=== PATIENT | female | born 1990 | race Caucasian/White ===

== ENCOUNTER 2016-11-26 12:31 | Emergency (ER) | payer MEDICAID ==
[2016-11-26 12:36] VITALS: BMI 41.3
[2016-11-26 12:38] VITALS: RESP 18
[2016-11-26] MEDS ORDERED: Sodium Chloride 0.9% 1,000 ML IV STA (13:24)
[2016-11-26] MEDS ORDERED: Sodium Chloride 0.9% 1,000 ML ONE (13:41)
--- NOTE | 2016-11-26 13:49 | C.PDOC ---
History Of Present Illness 26-year-old female, PMHx includes Hypertension and possible PCOS, presents to the emergency department with complaints of B/L lower pelvic pain for the past several months, that is intermittent in nature, sharp and occurs for twenty minutes at a time, every two hours. Patient denies fevers, chills, shortness of breath, nausea/vomiting, diarrhea, constipation, vaginal bleeding, dysuria, or any other associated symptoms. Patient states she went to the ER for same complaint in the past; Patient had a negative urine and lab work, and she was instructed to f/u with OBGYN outpatient. Patient was seen by PMD, who also instructed her to see OBGYN. Patient denies nausea/vomiting, diarrhea, fevers, chills, chest pain, shortness of breath, or any other associated symptoms. No other complaints at this time. Time Seen by Provider: 11/26/16 13:05 Chief Complaint (Nursing): Abdominal Pain History Per: Patient History/Exam Limitations: no limitations Onset/Duration Of Symptoms: Days, Intermittent Episodes Current Symptoms Are (Timing): Still Present Severity: Moderate Past Medical History Reviewed: Historical Data, Nursing Documentation, Vital Signs Vital Signs: Last Vital Signs Temp 98.7 F 11/26/16 12:37 Pulse 94 H 11/26/16 12:37 Resp 18 11/26/16 12:37 BP 138/84 11/26/16 12:37 Pulse Ox 98 11/26/16 13:52 - Medical History PMH: HTN Denies: Sexually Transmitted Disease Surgical History: - [facility] Procedures MONITORING NOS (08/26/14) LOW CERVICAL (11/18/14) Family History: States: No Known Family Hx - Social History Hx Tobacco Use: No Hx Alcohol Use: Yes Hx Substance Use: No - Immunization History Hx Tetanus Toxoid Vaccination: No Hx Influenza Vaccination: Yes (October 2016) Hx Pneumococcal Vaccination: No Review Of Systems Except As Marked, All Systems Reviewed And Found Negative. Constitutional: Negative for: Fever, Chills Gastrointestinal: Negative for: Nausea, Vomiting Genitourinary: Positive for: Pelvic Pain. Negative for: Dysuria, Frequency, Vaginal Discharge, Vaginal Bleeding Musculoskeletal: Negative for: Back Pain Skin: Negative for: Rash Physical Exam - Physical Exam Additional Physical Exam Comments: Constitutional: No acute distress. Head: Normocephalic. Atraumatic. Eyes: PERRL. ENT: Moist mucous membranes. Neck: Supple. Cardiovascular: Regular rate. Radial pulses 2+ bilaterally. Chest: No tenderness. Respiratory: Clear to auscultation bilaterally. GI: Soft. Nontender. Obese Back: No CVA tenderness. Musculoskeletal: No tenderness or swelling of extremities. Skin: No rashes. Neurologic: Alert, no focal deficit. ED Course And Treatment - Laboratory Results Result Diagrams: 11/26/16 13:39 11/26/16 13:39 O2 Sat by Pulse Oximetry: 98 Medical Decision Making Medical Decision Making: Impression 26y/o F, comes in w/ low pelvic pain x several months. Plan: * Labs * IVF * Transvaginal US * UA/HCG * Reassess and Disposition Accession No. : [id number] Patient Name / ID : MONIQUE GAMA / [id number] Exam Date : 11/26/2016 13:56:48 ( Approved ) Study Comment : Sex / Age : F / 26Y Creator : Mandi Romo MD Dictator : Mandi Romo MD Marketing Clerk : Charge Entry Specialist : Mandi Romo MD Approver2 : Report Date : 11/26/2016 14:16:36 My Comment : HISTORY: bilateral pelvic pain COMPARISON: None available. TECHNIQUE: Transvaginal pelvic ultrasound FINDINGS: UTERUS: Measures 9.8 x 4.0 x 5.3 cm. Anteverted. ENDOMETRIUM: Measures 9 mm in diameter. CERVIX: Cervix length measures approximately 2.9 cm. RIGHT OVARY: Measures 3.9 x 3.2 x 3.7 cm. Blood flow is demonstrated. Numerous tiny follicles. LEFT OVARY: Measures 3.8 x 2.6 x 2.8 cm. Blood flow is demonstrated. Numerous tiny follicles. FREE FLUID: No significant free fluid noted. OTHER FINDINGS: None. IMPRESSION: Numerous tiny bilateral ovarian follicles. Correlate clinically. Otherwise unremarkable study. Patient in no acute distress. Discharge home, f/u OBGYN, return to ER for worsening pain, fever, vomiting, dysuria, dyspnea, or any other problem. Disposition - Disposition Referrals: Chandrakant Pizano [facility] [place] [Outside] Disposition: HOME/ ROUTINE Disposition Time: 14:21 Condition: STABLE Additional Instructions: Transvaginal pelvic ultrasound FINDINGS: UTERUS: Measures 9.8 x 4.0 x 5.3 cm. Anteverted. ENDOMETRIUM: Measures 9 mm in diameter. CERVIX: Cervix length measures approximately 2.9 cm. RIGHT OVARY: Measures 3.9 x 3.2 x 3.7 cm. Blood flow is demonstrated. Numerous tiny follicles. LEFT OVARY: Measures 3.8 x 2.6 x 2.8 cm. Blood flow is demonstrated. Numerous tiny follicles. FREE FLUID: No significant free fluid noted. OTHER FINDINGS: None. IMPRESSION: Numerous tiny bilateral ovarian follicles. Correlate clinically. Otherwise unremarkable study. Instructions: Pelvic Pain in Women (ED) - Clinical Impression Clinical Impression: Pelvic pain - Scribe Statement The provider has reviewed the documentation as recorded by the Coni Hardy All medical record entries made by the Rickibdeisy were at my direction and personally dictated by me. I have reviewed the chart and agree that the record accurately reflects my personal performance of the history, physical exam, medical decision making, and the department course for this patient. I have also personally directed, reviewed, and agree with the discharge instructions and disposition.
[2016-11-26 13:50] LABS: BASO % 0.5 % (0.0-2.0); EOS % 0.4 % (0.0-4.0); HEMATOCRIT 39.4 % (34.0-47.0); LYMPH # 2.1 K/uL (1.0-4.3); LYMPH % 20.9 % (20.0-40.0); MEAN CORPUSCULAR HEMOGLOBIN 28.3 pg (27.0-31.0); MEAN CORPUSCULAR HGB CONC 32.5 g/dL (33.0-37.0); MEAN PLATELET VOLUME 8.6 fL (7.2-11.7); MONO # 0.4 K/uL (0.0-0.8); MONO % 3.9 % (0.0-10.0); WHITE BLOOD COUNT 9.9 K/uL (4.8-10.8)
[2016-11-26 13:59] LABS: RBC URINE 3 /hpf (0-3); URINE BILIRUBIN NEGATIVE (NEGATIVE); URINE BLOOD NEGATIVE (NEGATIVE); URINE COLOR Yellow (YELLOW); URINE GLUCOSE (UA) NORMAL (Normal); URINE KETONE NEGATIVE (NEGATIVE); URINE LEUKOCYTE ESTERASE NEG Leu/uL (Negative); URINE PROTEIN NEGATIVE (NEGATIVE); URINE UROBILINOGEN NORMAL mg/dL (0.2-1.0); WBC URINE 2 /hpf (0-5)
[2016-11-26 14:04] LABS: CHLORIDE 102 mmol/L (98-107); POTASSIUM 3.8 mmol/L (3.6-5.2); SODIUM 139 mmol/L (132-148)
[2016-11-26 14:06] LABS: AST/SGOT 27 U/L (14-36); BILIRUBIN,TOTAL 0.9 mg/dL (0.2-1.3); CARBON DIOXIDE 26 mmol/L (22-30); GFR AFRICAN-AMERICAN > 60
[2016-11-26 14:07] LABS: ALB/GLOB RATIO 1.2 (1.0-2.1); ALKALINE PHOSPHATASE 61 U/L (38-126); ALT/SGPT 34 U/L (9-52); BLOOD UREA NITROGEN 15 mg/dL (7-17); CALCIUM 8.9 mg/dl (8.6-10.4); GLUCOSE,RANDOM 118 mg/dL (65-105); TOTAL PROTEIN 8.4 g/dL (6.3-8.3)
--- NOTE | 2016-11-26 14:17 | US ---
HISTORY: bilateral pelvic pain COMPARISON: None available. TECHNIQUE: Transvaginal pelvic ultrasound FINDINGS: UTERUS: Measures 9.8 x 4.0 x 5.3 cm. Anteverted. ENDOMETRIUM: Measures 9 mm in diameter. CERVIX: Cervix length measures approximately 2.9 cm. RIGHT OVARY: Measures 3.9 x 3.2 x 3.7 cm. Blood flow is demonstrated. Numerous tiny follicles. LEFT OVARY: Measures 3.8 x 2.6 x 2.8 cm. Blood flow is demonstrated. Numerous tiny follicles. FREE FLUID: No significant free fluid noted. OTHER FINDINGS: None. IMPRESSION: Numerous tiny bilateral ovarian follicles. Correlate clinically. Otherwise unremarkable study.
[2016-11-26 14:51] VITALS: BP 132/76; PULSE 87; TEMP 98.1; O2SAT 97
== END 2016-11-26 14:50 | disposition home or self-care (01) ==
LOC: C.ER 12:31
DX: R10.2 Pelvic and perineal pain (principal)
CPT/HCPCS: 76830; 80053; 81001; 83690; 84703; 85025; 87086; 96360; 99284; J7040